=== PATIENT | male | born 1955 | race Two or more races ===

== ENCOUNTER 2018-01-27 18:35 | Emergency (ER) | payer MEDICARE ==
[~2018-01-27] VITALS: Ht 188 cm; Wt 83.9 kg
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
[2018-01-27 18:37] VITALS: BP 117/58
[2018-01-27 19:11] LABS: BASOPHILS % (AUTO) 2.2 % (0.0-2.0); EOSINOPHILS % (AUTO) 1.7 % (0.0-3.0); HEMATOCRIT 34.4 % (42.0-52.0); HEMOGLOBIN 11.7 G/DL (14.2-18.0); LYMPHOCYTES % (AUTO) 34.6 % (20.0-45.0); MEAN CORPUSCULAR VOLUME 93 FL (80-99); MONOCYTES % (AUTO) 7.4 % (1.0-10.0); NEUTROPHILS % (AUTO) 54.1 % (45.0-75.0); PLATELET COUNT 205 K/UL (150-450); RED CELL DISTRIBUTION WIDTH 13.7 % (11.6-14.8); WHITE BLOOD COUNT 7.9 K/UL (4.8-10.8)
[2018-01-27 19:17] LABS: BILIRUBIN, URINE NEGATIVE (NEGATIVE); COLOR,URINE AMBER; GLUCOSE, URINE (UA) NEGATIVE (NEGATIVE); KETONES,URINE NEGATIVE (NEGATIVE); LEUKOCYTE ESTERASE ,URINE 1+ (NEGATIVE); NITRITE,URINE NEGATIVE (NEGATIVE); PH,URINE 8 (4.5-8.0); PROTEIN,URINE NEGATIVE (NEGATIVE); UROBILINOGEN,URINE NORMAL MG/DL (0.0-1.0)
[2018-01-27 19:18] LABS: APPEARANCE,URINE SLIGHTLY CLOUDY
[2018-01-27 19:26] LABS: ANION GAP 9 mmol/L (5-15); BLOOD UREA NITROGEN 13 mg/dL (7-18); CALCIUM 8.9 MG/DL (8.5-10.1); CARBON DIOXIDE 26 MMOL/L (21-32); CHLORIDE 105 MMOL/L (98-107); INR 1.1 (0.9-1.1); POTASSIUM 3.7 MMOL/L (3.5-5.1); SODIUM 140 MMOL/L (136-145)
[2018-01-27 19:30] VITALS: BP 142/65
[2018-01-27 19:40] LABS: ALANINE AMINOTRANSFERASE 14 U/L (12-78); ALBUMIN 3.7 G/DL (3.4-5.0); ALBUMIN/GLOBULIN RATIO 1.2 (1.0-2.7); ALKALINE PHOSPHATASE 67 U/L (46-116); ASPARTATE AMINO TRANSFERASE 10 U/L (15-37); BILIRUBIN,TOTAL 0.4 MG/DL (0.2-1.0); CHOLESTEROL 118 MG/DL (< 200); CKMB 1.3 NG/ML (0.0-3.6); CREATINE KINASE 65 U/L (26-308); HDL CHOLESTEROL 49 MG/DL (40-60); TRIGLYCERIDES 18 MG/DL (30-150)
[2018-01-27 20:30] VITALS: BP 133/70
[2018-01-27] MEDS ORDERED: Cephalexin 500mg cap ORAL ONE (20:45)
[2018-01-27] MEDS ORDERED: KEFLEX500 MG ORAL (21:13)
[2018-01-27 21:15] VITALS: BP 133/70
--- NOTE | 2018-01-28 10:06 | Diagnostic Imaging Report ---
Indications: Altered mental status, code stroke Technique: Spiral acquisitions obtained through the brain. Angled axial and coronal 5 x 5 mm slices were reconstructed. Total dose length product 1230 mGycm. CTDI vol(s) 52 mGy. Dose reduction achieved using automated exposure control Comparison: None. Findings: There is mild frontal volume loss. Otherwise normal size ventricles and extra-axial CSF spaces. There is minimal periventricular deep white matter chronic ischemic change. Otherwise normal alva-white differentiation. The calvarium is intact. There is bilateral maxillary sinus disease. There are fracture deformities of the right anterior lateral maxillary sinus jeffers Impression: Mild age-related changes. Negative for acute intracranial bleed or mass effect Right maxillary sinus fracture. Correlate with clinical history as regards age This agrees with the preliminary interpretation provided overnight by [facility]. The CT scanner at [facility] is accredited by the [employer] and the scans are performed using protocols designed to limit radiation exposure to as low as reasonably achievable to attain images of sufficient resolution adequate for diagnostic evaluation.
--- NOTE | 2018-01-28 10:09 | Diagnostic Imaging Report ---
Indication: Shortness of breath Technique: One view of the chest Comparison: none Findings: Lungs and pleural spaces are clear. There is evidence of prior median sternotomy Impression: No acute process
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
--- NOTE | 2018-01-28 10:17 | Diagnostic Imaging Report ---
Indication: Pain Technique: Spiral acquisitions obtained through the cervical spine. No IV contrast utilized. Multiplanar reconstructions were generated. Total dose length product 754 mGycm. CTDIvol(s) 18 x 2 mGy. Dose reduction achieved using automated exposure control. Cervical spine delete that Comparison: none Findings: Bony alignment is normal. Vertebral body heights are preserved. Disc spaces are preserved. There is vacuum disc formation at a few levels. This indicates early degenerative change. No acute fractures. No dislocations. At C3-4, there is mild left and moderate right neural foraminal stenosis. At C5-6, there is severe right and moderate left neural foraminal stenosis. There is also bilateral paracentral disc protrusion and posterior osteophytes which may impinge on both lateral recesses. At C6-7, there is moderate bilateral neural foraminal stenosis. The included extraspinal soft tissues are unremarkable Impression: No acute bony trauma Degenerative changes as detailed above This agrees with the preliminary interpretation provided overnight by [facility]. The CT scanner at [facility] is accredited by the [employer] and the scans are performed using protocols designed to limit radiation exposure to as low as reasonably achievable to attain images of sufficient resolution adequate for diagnostic evaluation. The CT scanner at [facility] is accredited by the [employer] and the scans are performed using protocols designed to limit radiation exposure to as low as reasonably achievable to attain images of sufficient resolution adequate for diagnostic evaluation.
--- NOTE | 2018-01-29 21:25 | Cardiology Report ---
APPROVED REPORT EKG Measurement Heart [id number] Sinus rhythm with occasional premature ventricular complexes Left axis deviation Abnormal ECG
== END 2018-01-27 21:15 | disposition home or self-care (01) ==
LOC: EDBD 18:35 → EMR 19:00
DX: N39.0 Urinary tract infection, site not specified (principal); R41.82 Altered mental status, unspecified; S02.40CA Maxillary fracture, right side, initial encounter for closed fracture; Y04.2XXA Assault by strike against or bumped into by another person, initial encounter; Y92.9 Unspecified place or not applicable; M48.02 Spinal stenosis, cervical region; R93.0 Abnormal findings on diagnostic imaging of skull and head, not elsewhere classified
CPT/HCPCS: 36415; 70450; 70486; 71045; 72125; 80053; 80061; 80307; 81003; 82550; 82553; 82962; 83880; 84484; 85025; 85610; 85730; 93005; 99284; G0480; 80329